=== PATIENT | male | born 1940 | race Caucasian/White ===

== ENCOUNTER 2020-08-22 13:05 | Emergency (ER) | payer OTHER ==
--- NOTE | 2020-08-22 13:20 | NUR ---
LEFT BEFORE BEING TRIAGED
== END 2020-08-22 13:20 | disposition left against medical advice (07) ==
LOC: SED 13:05
DX: R05 Cough (principal); Z53.21 Procedure and treatment not carried out due to patient leaving prior to being seen by health care provider